=== PATIENT | female | born 1995 | race Caucasian/White ===

== ENCOUNTER 2021-05-27 21:14 | Emergency (ER) | payer BC ==
[~2021-05-27] VITALS: Ht 160 cm; Wt 68.2 kg
[~2021-05-27 21:14] MED LIST: KEPPRA 500MG500 MG PO
[2021-05-27 21:59] LABS: BASO # 0.1 K/mm3 (0.0-0.2); BASO % 0.6 % (0.0-2.0); EOS % 0.4 % (0-4.0); GRAN # 6.1 K/mm3 (1.4-6.5); GRAN % 60.2 % (42.2-75.2); HEMOGLOBIN 11.6 g/dl (12.5-16.0); LYMPH % 29.2 % (20.0-51.0); MEAN CELL VOLUME 86 fl (80.0-100.0); MEAN CORPUSCULAR HEMOGLOBIN 30 pg (27.0-31.0); MEAN CORPUSCULAR HGB CONC 35 g/dl (33.0-37.0); MEAN PLATELET VOLUME 8.5 fl (7.4-10.4); MONO # 0.9 K/mm3 (0.1-0.6); MONO % 9.3 % (1.7-9.3); PLATELET COUNT 313 K/mm3 (130-400); RED BLOOD COUNT 3.84 M/mm3 (4.10-5.30); REDCELL DISTRIBUTION WIDTH-CV 11.9 % (11.5-14.5)
[2021-05-27 22:00] LABS: HEMATOCRIT 33.1 % (37.0-47.0)
[2021-05-27 22:25] LABS: ALBUMIN 3.9 gm/dL (3.5-5.0); BILIRUBIN,TOTAL 0.3 mg/dL (0.2-1.2); CALCIUM 9.5 mg/dL (8.4-10.2); CREATININE, serum 0.73 mg/dL (0.57-1.11); POTASSIUM 3.7 mmol/L (3.5-4.5); TOTAL PROTEIN 6.4 gm/dL (6.2-8.1)
[2021-05-27 23:12] VITALS: BP 114/70; PULSE 76
== END 2021-05-27 23:12 | disposition home or self-care (01) ==
LOC: COL.ER 21:14
PROVIDERS: Physician Assistant
DX: O20.0 Threatened abortion (principal); Z3A.09 9 weeks gestation of pregnancy
CPT/HCPCS: J7030

== ENCOUNTER 2021-06-30 18:42 | Emergency (ER) | payer BC ==
[~2021-06-30] VITALS: Ht 160 cm; Wt 66.4 kg
[2021-06-30 18:50] VITALS: TEMP 98
[2021-06-30 21:15] VITALS: BP 124/78; PULSE 76
== END 2021-06-30 21:15 | disposition home or self-care (01) ==
LOC: COL.ER 18:42
DX: O23.591 Infection of other part of genital tract in pregnancy, first trimester (principal); N89.8 Other specified noninflammatory disorders of vagina; Z3A.14 14 weeks gestation of pregnancy

== ENCOUNTER 2021-12-05 17:18 | Outpatient (CLI) | payer BC ==
[~2021-12-05] VITALS: Ht 160 cm; Wt 76.8 kg
--- NOTE | 2021-12-05 17:45 | NUR ---
notified patient here, amnitrace negative, Category I strip. Discharge order obtained. Patient to return for induction of labor on as scheduled.
[2021-12-05 18:00] VITALS: BP 107/61; PULSE 92; TEMP 97.9
== END 2021-12-05 18:00 | disposition home or self-care (01) ==
LOC: LDRO 17:18 → LDR 17:18 → LDRO 18:00
DX: Z34.93 Encounter for supervision of normal pregnancy, unspecified, third trimester (principal); Z3A.36 36 weeks gestation of pregnancy
CPT/HCPCS: OP

== ENCOUNTER 2021-12-05 18:01 | Inpatient (IN) | payer BC ==
[~2021-12-05] VITALS: Ht 160 cm; Wt 82.3 kg
[2021-12-07] VITALS (27 sets, daily range): BP systolic 85–112; BP diastolic 50–71; PULSE 72–99; TEMP 97.4–98.2
--- NOTE | 2021-12-07 06:35 | NUR ---
Presents to L&D for scheduled induction of labor. Note ambulatory, accompanied by spouse.
--- NOTE | 2021-12-07 07:08 | NUR ---
After noting reactive Category I monitor strip, pitocin started @ 2mU/min with explanation to patient and spouse. Verbalize understanding.
[2021-12-07] MEDS ORDERED: PRENATAL MULTIV1 KIT PO (07:11)
[2021-12-07 07:34] LABS: HEMOGLOBIN 10.6 g/dl (12.5-16.0); MEAN CELL VOLUME 88 fl (80.0-100.0); MEAN CORPUSCULAR HEMOGLOBIN 30 pg (27-31); MEAN CORPUSCULAR HGB CONC 34 g/dl (33.0-37.0); MEAN PLATELET VOLUME 8.9 fl (7.4-10.4); PLATELET COUNT 320 K/mm3 (130-400); RED BLOOD COUNT 3.51 M/mm3 (4.10-5.30)
[2021-12-07 07:36] LABS: HEMATOCRIT 30.9 % (37.0-47.0)
[2021-12-07 07:47] LABS: LYMPHOCYTE 16 % (20.0-51.0); NEUTROPHILS 75 % (42.0-75.2)
[2021-12-07 07:48] LABS: PLATELET ESTIMATE NORMAL (NORMAL)
--- NOTE | 2021-12-07 08:03 | NUR ---
Note patient's transfer operator, "Cristina" arrives to unit.
--- NOTE | 2021-12-07 08:15 | NUR ---
Pitocin increased to 8mU/min. Patient reports incontinent of urine, dribbling. Mesh underwear and keshav pad provided. Up to BR @ this time.
--- NOTE | 2021-12-07 08:42 | NUR ---
0842-Roles here for evaluation. 0848-AROM by . Clear fluid noted.
--- NOTE | 2021-12-07 09:22 | NUR ---
Assisted up to BR.
--- NOTE | 2021-12-07 09:25 | NUR ---
Assisted to sitting upright on birthing ball upon return from bathroom. Pit increased to 14 mU/min.
--- NOTE | 2021-12-07 09:47 | NUR ---
Assisted back to bed. Positioned in left lateral using peanut ball.
--- NOTE | 2021-12-07 10:00 | NUR ---
Note patient hypotensive, asymptomatic. Lying on left side, cuff on arm that is up (right arm).
--- NOTE | 2021-12-07 10:28 | NUR ---
Rate of pitocin increased to 16 mU/min. [place] repositioned, as noted, difficulty tracing contractions while patient in left lateral.
--- NOTE | 2021-12-07 10:50 | NUR ---
Repositioned to wedged left per patient request following repeat SVE.
--- NOTE | 2021-12-07 11:19 | NUR ---
Requests epidural. LR bolus begun. Anesthesia notified.
--- NOTE | 2021-12-07 11:42 | NUR ---
Up to bathroom prior to epidural block.
--- NOTE | 2021-12-07 11:45 | NUR ---
1143-KRISTINE Nash, here. Time-out completed. 1145-Sitting up at side of bed in preparation for epidural placement. 1150-Local anesthetic administered by KRISTINE Nash. 1153-Epidural space obtained by KRISTINE. 1153-Single shot administered by KRISTINE. 1153-Epidural catheter threaded by KRISTINE. 1156-Test dose administered by KRISTINE. No adverse reactions noted. Tolerates procedure well.
--- NOTE | 2021-12-07 12:01 | NUR ---
1201-Roles in house, stops into patient room. Updated to last SVE at 1048, , just finished with epidural block. She reports she is in-house for surgery, will stop back by after.
--- NOTE | 2021-12-07 12:41 | NUR ---
perfors red saarh straight catheter for approximated 150mL urine return. repairs 2nd degree with 2-[address]1.
--- NOTE | 2021-12-07 18:44 | NUR ---
REPORT RECEIVED FROM KAREN RN. PATIENT AND SPOUSE IN NURSERY SPEAKING WITH TRANSPORT TEAM FROM [facility].
[2021-12-07] MEDS ORDERED: MOTRIN 800800 MG/TAB PO (18:54)
--- NOTE | 2021-12-07 20:10 | NUR ---
Discharge instructions reviewed with patient, verbalized understanding. Pt seen ambulating off unit with belongings and significant other.
== END 2021-12-07 20:10 | disposition home or self-care (01) | DRG 806 ==
LOC: LDR 12-07 06:31 → OB 12-07 15:00 → LDR 12-07 18:00 → OB 12-07 20:10
PROVIDERS: ADMIT Obstetrics & Gynecology
PROC: 10E0XZZ Delivery of Products of Conception, External Approach (ICD-10-PCS; principal; 2021-12-07)
PROC: 0KQM0ZZ Repair Perineum Muscle, Open Approach (ICD-10-PCS; 2021-12-07)
PROC: 10907ZC Drainage of Amniotic Fluid, Therapeutic from Products of Conception, Via Natural or Artificial Opening (ICD-10-PCS; 2021-12-07)
PROC: 3E033VJ Introduction of Other Hormone into Peripheral Vein, Percutaneous Approach (ICD-10-PCS; 2021-12-07)
DX: O36.5930 Maternal care for other known or suspected poor fetal growth, third trimester, not applicable or unspecified (principal); O99.354 Diseases of the nervous system complicating childbirth; Z37.0 Single live birth; O34.03 Maternal care for unspecified congenital malformation of uterus, third trimester; Q51.28 Other and unspecified doubling of uterus; G40.909 Epilepsy, unspecified, not intractable, without status epilepticus; O43.123 Velamentous insertion of umbilical cord, third trimester; O70.1 Second degree perineal laceration during delivery; Z3A.37 37 weeks gestation of pregnancy
CPT/HCPCS: J2590; J7120

== ENCOUNTER 2022-05-03 08:14 | Emergency (ER) | payer OTHER ==
[~2022-05-03] VITALS: Ht 160 cm; Wt 68.2 kg
[~2022-05-03 08:14] MED LIST changes: +MOTRIN 800800 MG/TAB PO; +PRENATAL MULTIV1 KIT PO
[2022-05-03 09:04] LABS: COLLECTION METHOD CLEAN CATCH
[2022-05-03 09:26] LABS: PH 6.5 (5.0-8.5); URINE APPEARANCE Clear (CLEAR/HAZY); URINE BLOOD Negative (NEGATIVE); URINE COLOR Yellow (YELLOW); URINE GLUCOSE Negative (NEGATIVE); URINE KETONE Negative (NEGATIVE); URINE NITRATE Negative (NEGATIVE); URINE PROTEIN(semi-quant) Negative (NEGATIVE); URINE UROBILINOGEN 0.2 E.U/dL (0.2-1.0)
[2022-05-03 09:28] LABS: SQUAMOUS EPITHELIAL 0-2 /hpf (0-10); URINE RBC None Seen /hpf (0-2)
[2022-05-03 09:29] LABS: URINE BACTERIA None Seen /hpf (NONE SEEN)
[2022-05-03 11:06] VITALS: BP 101/72; PULSE 80
== END 2022-05-03 11:06 | disposition home or self-care (01) ==
LOC: COL.ER 08:14
PROVIDERS: Emergency Medicine
DX: R07.89 Other chest pain (principal); Z28.310 Unvaccinated for COVID-19

== ENCOUNTER 2022-05-10 21:32 | Emergency (ER) | payer OTHER ==
[~2022-05-10] VITALS: Ht 160 cm; Wt 68.2 kg
[2022-05-10 21:40] VITALS: TEMP 98
[2022-05-10 22:47] LABS: BASO % 0.4 % (0.0-2.0); EOS % 0.5 % (0.0-4.0); GRAN # 3.9 K/mm3 (1.4-6.5); GRAN % 47.5 % (42.2-75.2); HEMATOCRIT 37.6 % (37.0-47.0); HEMOGLOBIN 12.8 g/dl (12.5-16.0); LYMPH # 3.2 K/mm3 (1.2-3.4); LYMPH % 39.2 % (20.0-51.0); MEAN CELL VOLUME 88 fl (80.0-100.0); MEAN CORPUSCULAR HEMOGLOBIN 30 pg (27-31); MEAN CORPUSCULAR HGB CONC 34 g/dl (33.0-37.0); MEAN PLATELET VOLUME 9.1 fl (7.4-10.4); MONO % 12.2 % (1.7-9.3); PLATELET COUNT 319 K/mm3 (130-400); RED BLOOD COUNT 4.26 M/mm3 (4.10-5.30)
[2022-05-10 23:01] LABS: ALANINE AMINOTRANSFERASE 14 U/L (0-55); ALBUMIN 4.8 gm/dL (3.5-5.0); ALKALINE PHOSPHATASE 63 U/L (40-150); ANION GAP 11 mmol/L (7-16); AST,SGOT 18 U/L (5-34); BILIRUBIN,TOTAL 0.5 mg/dL (0.2-1.2); BLOOD UREA NITROGEN 18 mg/dL (7-19); CALCIUM 9.7 mg/dL (8.4-10.2); CARBON DIOXIDE 21 mmol/L (22-29); CHLORIDE 106 mmol/L (98-107); CREATININE, serum 0.89 mg/dL (0.57-1.11); GLUCOSE 75 mg/dL (70-99); POTASSIUM 3.9 mmol/L (3.5-4.5); SODIUM 138 mmol/L (136-145); TOTAL PROTEIN 7.7 gm/dL (6.2-8.1)
[2022-05-10 23:12] LABS: TROPONIN-I < 0.010 ng/mL (0.00-0.033)
[2022-05-11 00:17] VITALS: BP 130/72; PULSE 88
== END 2022-05-10 23:57 | disposition home or self-care (01) ==
LOC: COL.ER 21:32
PROVIDERS: Emergency Medicine
DX: R07.89 Other chest pain (principal); M79.602 Pain in left arm; Z28.310 Unvaccinated for COVID-19
CPT/HCPCS: J1885

== ENCOUNTER 2022-10-14 07:33 | Outpatient (CLI) | payer OTHER ==
[~2022-10-14] VITALS: Ht 160 cm; Wt 63.6 kg
[2022-10-14 06:05] LABS: BASO # 0.1 K/mm3 (0.0-0.2); BASO % 0.4 % (0.0-2.0); EOS % 0.1 % (0.0-4.0); GRAN # 15.7 K/mm3 (1.4-6.5); HEMATOCRIT 36.7 % (37.0-47.0); HEMOGLOBIN 12.1 g/dl (12.5-16.0); LYMPH # 1.3 K/mm3 (1.2-3.4); LYMPH % 6.8 % (20.0-51.0); MEAN CELL VOLUME 92 fl (80.0-100.0); MEAN CORPUSCULAR HEMOGLOBIN 30 pg (27-31); MEAN CORPUSCULAR HGB CONC 33 g/dl (33.0-37.0); MEAN PLATELET VOLUME 8.9 fl (7.4-10.4); MONO # 1.3 K/mm3 (0.1-0.6); MONO % 7.3 % (1.7-9.3); PLATELET COUNT 278 K/mm3 (130-400); RED BLOOD COUNT 4.01 M/mm3 (4.10-5.30); REDCELL DISTRIBUTION WIDTH-CV 12.5 % (11.5-14.5)
--- NOTE | 2022-10-14 08:09 | NUR ---
PT ARRIVES ON UNIT FROM ED WITH SPOUSE AND CHILD. PT CALM, COMPLAINING OF CRAMPING AND ASKING FOR MEDICATION TO HELP. RN DISCUSSES POC WITH PT AND ANSWERS ANY QUESTIONS. PT VERBALIZES UNDERSTANDING.
[2022-10-14 08:33] VITALS: BP 107/62; PULSE 72; TEMP 98.1
--- NOTE | 2022-10-14 11:24 | NUR ---
0108 RN BEDSIDE; PT RESTING COMFORTABLY, WARM BLANKETS PROVIDED. PT EXPRESSES A DESIRE TO GO HOME. RN ASSESSES PAD AND PAIN.
--- NOTE | 2022-10-14 12:05 | NUR ---
1204 PT GIVEN BOTH WRITTEN AND VERBAL DISCHARGE INSTRUCTIONS. PT INSTRUCTED ON SIGNS/SYMPTOMS OF SEPSIS, SIGNS TO WATCH OUT FOR, WHAT TO CONTACT PROVIDER FOR. PT VERBALIZES UNDERSTANDING AND HAS NO QUESTIONS AT THIS TIME.
== END 2022-10-14 12:11 | disposition home or self-care (01) ==
LOC: COL.ER 07:33 → EDSTATUS 07:54 → COL.ER 12:11
PROVIDERS: Personal Emergency Response Attendant
DX: O03.9 Complete or unspecified spontaneous abortion without complication (principal); Z28.310 Unvaccinated for COVID-19
CPT/HCPCS: J1885; J7030

== ENCOUNTER 2023-07-19 10:45 | Outpatient (CLI) | payer OTHER ==
[~2023-07-19] VITALS: Ht 160 cm; Wt 74.5 kg
--- NOTE | 2023-07-19 10:50 | NUR ---
PT AMBULATORY TO UNIT WITH SPOUSE AND CHILD. PT ORIENTED TO ROOM AND PLAN OF CARE, EFM AND TOCO PLACED ON MATERNAL STOMACH FOR TRACING. PT CAME FROM OB CLINIC DUE TO REPORTED VAGINAL BLEEDING. PT REPORTS HAVING A LARGE SNEEZE AND FEELING SOME DISCOMFORT AND SCANT LOF. AFTER SNEEZE IS WHEN PT REPORTS STARTING SCANT VAGINAL SPOTTING. FHR BASELINE 140'S, NO CTX BUT PT REPORTS "FEELING IRREGULAR MCKINLEY LE OCCATIONALLY." NO LOF OR VAGINAL SPOTTING OBSERVED PER THIS RN, BUT PT DID SHOW THIS RN HER PAD WITH SCANT TO NONE OF VAGINAL SPOTTING ON ADMISSION TO UNIT. PT VS STABLE
[2023-07-19] MEDS ORDERED: PRENATAL TABLET PO (11:09)
[2023-07-19 11:20] VITALS: BP 94/55; PULSE 89; TEMP 98.2
--- NOTE | 2023-07-19 11:40 | NUR ---
THIS RN CHECKS LOF WITH AMNIOTRACE. AMNIOTRACE WAS NEGATIVE.
[2023-07-19 11:50] VITALS: BP 91/58; PULSE 100
== END 2023-07-19 13:00 | disposition home or self-care (01) ==
LOC: LDRO 10:45
DX: O26.859 Spotting complicating pregnancy, unspecified trimester (principal); Z3A.00 Weeks of gestation of pregnancy not specified

== ENCOUNTER 2023-07-23 00:20 | Outpatient (CLI) | payer OTHER ==
[~2023-07-23] VITALS: Ht 160 cm; Wt 76.4 kg
[~2023-07-23 00:20] MED LIST changes: +PRENATAL TABLET PO
[2023-07-23] MEDS ORDERED: LR 1,000 ML IV PRN (00:30)
--- NOTE | 2023-07-23 00:30 | NUR ---
AT 34+2 PRESENTS TO OBT VIA WHEELCHAIR ACCOMPANIED BY SPOUSE AND STAFF. PT COMPLAINT OF HAVING A GRAND MAL SEIZURE AT 2345 ON 15JAN LASTING FOR APPROX 30 SECONDS. PT DENIES TRIGGER OF SEIZURE. PT STATES SHE WAS LAYING IN BED WHEN THE SEIZURE OCCURED. PT DENIES FALLS OR TRAUMA DURING SEIZURE EVENT. PT STATES SHE TAKES 1000MG OF KEPPRA ONCE PER DAY. PER RECORD THE PRESCRIBED DOSE OF KEPPRA IS 1000MG TWICE PER DAY. LAST DOSE WAS AROUND 2300 JUST PRIOR TO SEIZURE. PT ENDORSES MOVEMENT. STATES THAT SHE DRANK LEMONADE AFTER THE SEIZURE TO ELICIT MOVEMENT AT THAT TIME. PT DENIES LOF/VAG BLEEDING. PT CHANGED INTO GOWN AND PLACED ON MONITOR. REACTIVE NST OBTAINED.
[2023-07-23 01:15] VITALS: BP 96/61; PULSE 98; TEMP 98.7
--- NOTE | 2023-07-23 01:35 | NUR ---
WRITTEN AND VERBAL DISCHARGE INSTRUCTIONS PROVIDED TO PT AND SPOUSE. EDUCATED ON RECOMMENDATION FROM DR. WALL TO TAKE 1000MG KEPPRA TWICE DAILY PRESCRIBED. PT STATES SHE HAS BEEN TAKING IT ONCE DAILY FOR A LONG TIME AND THAT IS WHAT WORKS FOR HER. SHE STATES SHE FEELS LESS 'FOGGY' WHEN ONLY TAKING IT ONCE PER DAY. PT STATES SHE DOES NOT HAVE A SET TIME TO TAKE THE KEPPRA SO ADMINISTRATION TIMES VARY. PER DR. WALL PT SHOULD CALL NEURO CLINIC IN THE MORNING TO INFORM THEM ABOUT THE SEIZURE EPISODE. PT VERBALIZED UNDERSTANDING OF DISCHARGE EDUCATION. PT DENIES QUESTIONS/CONCERNS AT TIME OF DC. PT STABLE AT TIME OF DC. PT AMBULATED OFF UNIT TO POV ACCOMPANIED BY SPOUSE.
== END 2023-07-23 01:35 | disposition home or self-care (01) ==
LOC: LDRO 00:20
DX: O99.353 Diseases of the nervous system complicating pregnancy, third trimester (principal); Z3A.34 34 weeks gestation of pregnancy

== ENCOUNTER 2023-08-10 20:43 | Outpatient (CLI) | payer OTHER ==
[~2023-08-10] VITALS: Ht 160 cm; Wt 77.3 kg
--- NOTE | 2023-08-10 20:50 | NUR ---
2049- PT PRESENTS TO LDR COMPLAINING OF CONTRACTIONS, AMBULATORY TO ROOM LR5, CHANGED INTO GOWN. 2057- EFM X2 APPLIED. PT DENIES LEAKING FLUID OR VAGINAL BLEEDING. STATES SHE HAS HAD MORE THAN 6 CONTRACTIONS IN AN HOUR SINCE [address] BHATT HAD TOLD HER THAT WAS WHEN SHE NEEDED TO BE EVALUATED AT THE HOSPITAL. PT REPORTS SHE IS FEELING THE BABY MOVE. 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 DISCUSSED PLAN OF CARE FOR LABOR CHECK, QUESTIONS ANSWERED, AND PT GIVES CONSENT FOR SVE. 2104- SVE BY THIS NURSE WITH UNKNOWN PRESENTING PART, POSSIBLE BUTTOCKS OR SHOULDER. PLAN OF CARE FOR LABOR CHECK DISCUSSED AND PT IS AGREEABLE TO BE MONITORED FOR AN HOUR AND THEN RECHECK CERVIX. 2114- NURSING ADMISSION HISTORY AND ASSESSMENT COMPLETE. PT IS PROVIDED WITH ORAL HYDRATION. 2129- PT TURNS TO LEFT LATERAL FOR HER COMFORT. NURSE AT BEDSIDE TO ADJUST MONITORS. 2134- UNABLE TO OBTAIN TRACING DUE TO MATERNAL POSITION AND BICORNATE UTERUS WITH UNKNOWN LIE. MONITOR TURNED OFF SO MOTHER MAY REST AND WILL OBTAIN TRACING PRIOR TO DISCHARGE. 2139- DR WALL UPDATED CHARTED. ORDERS OBTAINED FOR LABOR CHECK 2208- MONITOR TURNED ON. PT REPORTS HER CONTRACTIONS ARE ABOUT THE SAME AND SHE "JUST WANTS TO GET HOME." 2209- SVE BY THIS NURSE WITH NO CHANGE. PLAN OF CARE FOR WATCHING BABY A LITTLE ON MONITOR AND THEN DISMISSAL DISCUSSED. PT AGREEABLE. DR WALL AT DESK FOR ANOTHER DELIVERY AND IS UPDATED ON PT COMFORT AND SVE. DISMISSAL ORDERS RECEIVED. 2224- PT OFF MONITORS FOR DISMISSAL. DISCHARGE INSTRUCTIONS GIVEN INCLUDING WHEN TO RETURN TO LDR AND DISCHARGE AND SPOTTING EXPECTATIONS. PT VERBALIZES UNDERSTANDING AND SIGNS PAPERWORK. 2234- PT DISMISSED TO HOME AMBULATORY ACCOMPANIED BY SPOUSE AND DAUGHTER.
[2023-08-10] MEDS ORDERED: LR 1,000 ML IV PRN (21:00)
[2023-08-10 21:30] VITALS: BP 101/67; PULSE 114; TEMP 98.5
== END 2023-08-10 22:35 | disposition home or self-care (01) ==
LOC: LDRO 20:43 → LDR 20:55 → LDRO 22:35
DX: O47.03 False labor before 37 completed weeks of gestation, third trimester (principal); Z3A.36 36 weeks gestation of pregnancy
CPT/HCPCS: OP

== ENCOUNTER 2023-08-26 09:20 | Inpatient (IN) | payer OTHER ==
[~2023-08-26] VITALS: Ht 160 cm; Wt 77.7 kg
[2023-08-26 10:00] VITALS: BP 96/62; PULSE 88; TEMP 98
[2023-08-26] MEDS ORDERED: LR 1,000 ML IV SCH (10:00)
[2023-08-26 10:01] LABS: BASO # 0.1 K/mm3 (0.0-0.2); BASO % 0.4 % (0.0-2.0); EOS % 0.2 % (0.0-4.0); GRAN # 8.9 K/mm3 (1.4-6.5); GRAN % 70.8 % (42.2-75.2); HEMOGLOBIN 11.2 g/dl (12.5-16.0); LYMPH # 2.2 K/mm3 (1.2-3.4); LYMPH % 17.4 % (20.0-51.0); MEAN CELL VOLUME 90 fl (80.0-100.0); MEAN CORPUSCULAR HEMOGLOBIN 30 pg (27-31); MEAN CORPUSCULAR HGB CONC 34 g/dl (33.0-37.0); MEAN PLATELET VOLUME 8.8 fl (7.4-10.4); MONO # 1.3 K/mm3 (0.1-0.6); MONO % 10.2 % (1.7-9.3); PLATELET COUNT 354 K/mm3 (130-400); REDCELL DISTRIBUTION WIDTH-CV 13.4 % (11.5-14.5)
[2023-08-26 10:02] LABS: HEMATOCRIT 33.1 % (37.0-47.0)
--- NOTE | 2023-08-26 10:30 | NUR ---
Pt and family arrive ambulatory to unit at 0915 for scheduled . Pt changes into gown, EFM explained and placed, VS done. Pt denies leaking of fluid, vaginal bleeding, and contractions. Pt reports good movement. IV started in left forearm, labs drawn, LR started per protocol. Pt has history of unstable lie, wishes to have vaginal delivery if possible. Dr. Akins to bedside at 0930, scans pt with US, per physician fetus in transverse position with head in upper right corner. Pt counseled extensively by Dr. Akins to proceed with scheduled at this time. Pt and epxress concerns and are reluctant, request time to try positioning to see if baby will transition to vertex position.
--- NOTE | 2023-08-26 11:10 | NUR ---
Pt repositioning self continuously starting at 1000, difficulty tracing FHR during maternal movement. Pt taken off monitors at 1018. Monitors turned back on at 1105.
--- NOTE | 2023-08-26 11:32 | NUR ---
Dr. Akins returns to bedside at 1040. Repeat scan of pt by physician shows unchanged presentation. Pt and spouse again counseled by Dr. Akins to proceed with . Pt and spouse request time to discuss decision. Dr. Akins returns to bedside at 1055. Pt and spouse have decided to not proceed with at this time. Per Dr. Akins, pt rescheduled for on Thursday 08/31 at 0730. Discharge education provided to pt and spouse, educated to return to hospital if leaking fluid, vaginal bleeding, regular contractions every 3 minutes, or decreased movement. Pt also informed of rescheduled and need to stop fluid/food intake at midnight the day of. Pt and spouse verbalize understanding. Pt and spouse leave ambulatory at 1135
== END 2023-08-26 11:35 | disposition home or self-care (01) | DRG 833 ==
LOC: LDR 09:20 → OB 11:07 → LDR 11:35
PROVIDERS: ADMIT Obstetrics & Gynecology
DX: O32.8XX0 Maternal care for other malpresentation of fetus, not applicable or unspecified (principal); Z3A.39 39 weeks gestation of pregnancy; O99.353 Diseases of the nervous system complicating pregnancy, third trimester; O34.03 Maternal care for unspecified congenital malformation of uterus, third trimester; Q51.3 Bicornate uterus; G40.909 Epilepsy, unspecified, not intractable, without status epilepticus
CPT/HCPCS: J7120

== ENCOUNTER 2023-08-31 05:37 | Inpatient (IN) | payer OTHER ==
[~2023-08-31] VITALS: Ht 160 cm; Wt 77.5 kg
[2023-08-31] VITALS (17 sets, daily range): BP systolic 98–116; BP diastolic 56–82; PULSE 60–92; TEMP 98.1–98.6
[2023-08-31] MEDS ORDERED: LR 1,000 ML IV SCH ×2 (05:45→06:45)
[2023-08-31 06:40] LABS: BASO % 0.4 % (0.0-2.0); EOS # 0.1 K/mm3 (0.0-0.7); EOS % 0.6 % (0.0-4.0); GRAN # 5.8 K/mm3 (1.4-6.5); GRAN % 62.2 % (42.2-75.2); HEMOGLOBIN 11.2 g/dl (12.5-16.0); LYMPH # 2.4 K/mm3 (1.2-3.4); LYMPH % 26.3 % (20.0-51.0); MEAN CELL VOLUME 90 fl (80.0-100.0); MEAN CORPUSCULAR HEMOGLOBIN 30 pg (27-31); MEAN CORPUSCULAR HGB CONC 34 g/dl (33.0-37.0); MEAN PLATELET VOLUME 9.1 fl (7.4-10.4); MONO # 0.8 K/mm3 (0.1-0.6); MONO % 9.1 % (1.7-9.3); PLATELET COUNT 320 K/mm3 (130-400); REDCELL DISTRIBUTION WIDTH-CV 13.6 % (11.5-14.5)
[2023-08-31] MEDS ORDERED: Ondansetron 4 MG/2 ML VIAL IV PRN ×2 (06:45→08:30)
[2023-08-31] MEDS ORDERED: Meperidine 50 MG/ML 1 ML VIAL IV PRN (06:45)
[2023-08-31] MEDS ORDERED: diphenhydrAMINE 50 MG/ML 1 ML VIAL IV PRN (06:45)
[2023-08-31] MEDS ORDERED: NS 30 ML IV ONE (06:54)
[2023-08-31] MEDS ORDERED: Ketorolac 30 MG/ML VIAL ONE (06:54)
[2023-08-31] MEDS ORDERED: Ondansetron 4 MG/2 ML VIAL ONE (06:54)
[2023-08-31] MEDS ORDERED: dexAMETHasone 10 MG/ML VIAL ONE (06:54)
[2023-08-31] MEDS ORDERED: Oxytocin 10 UNITS/ML VIAL ONE (06:54)
[2023-08-31] MEDS ORDERED: EPINEPHrine 1 MG/1 ML Ampule ONE (06:55)
[2023-08-31] MEDS ORDERED: Phenylephrine 10 MG/ML VIAL ONE (06:55)
[2023-08-31 06:58] LABS: HEMATOCRIT 33.1 % (37.0-47.0)
[2023-08-31] MEDS ORDERED: Naloxone 0.4 MG/ML VIAL IV PRN (08:30)
[2023-08-31] MEDS ORDERED: Loratadine 10 MG TAB PO PRN (08:30)
[2023-08-31] MEDS ORDERED: Measles/Mumps/Rubella Virus Vaccine Live w Diluent 0.5 ML VIAL SQ SCH (08:30)
[2023-08-31] MEDS ORDERED: Acetaminophen 500 MG TAB PO SCH (08:30)
[2023-08-31] MEDS ORDERED: Magnes Hydrox (MOM) 80 MG/ML 30 ML CUP PO PRN (08:30)
[2023-08-31] MEDS ORDERED: oxyCODONE 5 MG TAB PO PRN (08:30)
[2023-08-31] MEDS ORDERED: LR 1,000 ML IV PRN (08:30)
[2023-08-31] MEDS ORDERED: Prenatal Vitamins/Iron/FA TAB PO SCH (09:00)
[2023-08-31] MEDS ORDERED: levETIRAcetam 500 MG TAB PO SCH (09:00)
--- NOTE | 2023-08-31 10:22 | NUR ---
VIABLE FEMALE INFANT BORN VIA PRIMARY FOR BREECH PRESENTATION AT 0756.
--- NOTE | 2023-08-31 10:23 | NUR ---
PT AND SPOUSE ORIENTED TO ROOM AND POC. PATIENT VERBALIZES UNDERSTANDING
[2023-08-31] MEDS ORDERED: Ibuprofen 800 MG TAB PO SCH (14:26)
--- NOTE | 2023-08-31 14:57 | NUR ---
2804 PT STATES SHE CAN FEEL HER LEGS BUT HER FEET "FEEL ASLEEP". RN DISCUSSES PLAN TO TRY TO DANGLE/WIRE MESH KNITTER 1 HOUR. PT AGREES
--- NOTE | 2023-08-31 16:14 | NUR ---
1610 PT AMBULATES TO BATHROOM WITH RN STAND BY ASSIST. PT INDEPENDENT IN AMBULATION
[2023-08-31] MEDS ORDERED: Sennosides/Docusate 8.6-50 MG TAB PO SCH (17:00)
[2023-08-31] MEDS ORDERED: traZODone 50 MG TAB PO PRN (21:00)
[2023-09-01 00:25] VITALS: BP 103/53; PULSE 61; TEMP 98.3
[2023-09-01 07:18] VITALS: BP 93/52; PULSE 62; TEMP 98
[2023-09-01] MEDS ORDERED: Influenza Virus Vaccine, Quad '23-24 (6 MOS+) 0.5 ML SYRINGE IM SCH (09:00)
[2023-09-01 16:07] VITALS: BP 112/62; PULSE 60; TEMP 98.1
[2023-09-01 21:35] VITALS: BP 95/50; PULSE 65; TEMP 98.4
--- NOTE | 2023-09-02 06:30 | NUR ---
THIS RN ATTEMPTED TO ASSESS INCISION, ABDOMINAL DRESSING STILL ON PT, RECOMMENDED THAT WHEN PT SHOWERS THE DRESSING CAN BE REMOVED EASIER. FUNDUS FIRM DOWN 1 FROM UMBILICUS, SCANT LOCHIA, NO CLOTS, PT REPORTS PAIN AT INCISION SITE WHEN MOVING CERTAIN WAYS BUT REPORTS STAYING ON SCHEDULED TYLENOL AND MOTRIN HAVE HELPED.
[2023-09-02 06:50] VITALS: BP 90/56; PULSE 64; TEMP 97.4
[2023-09-02] MEDS ORDERED: IBU800 M1 PO (09:14)
== END 2023-09-02 13:55 | disposition home or self-care (01) | DRG 787 ==
LOC: OB 05:37
PROVIDERS: ADMIT Obstetrics & Gynecology
PROC: 10D00Z1 Extraction of Products of Conception, Low, Open Approach (ICD-10-PCS; principal; 2023-08-31)
DX: O32.1XX0 Maternal care for breech presentation, not applicable or unspecified (principal); O99.354 Diseases of the nervous system complicating childbirth; Z37.0 Single live birth; O90.2 Hematoma of obstetric wound; G40.909 Epilepsy, unspecified, not intractable, without status epilepticus; O34.03 Maternal care for unspecified congenital malformation of uterus, third trimester; Q51.3 Bicornate uterus; O69.81X0 Labor and delivery complicated by cord around neck, without compression, not applicable or unspecified; Z3A.39 39 weeks gestation of pregnancy
CPT/HCPCS: J0171; J0665; J0690; J1100; J1885; J2371; J2405; J2590; J7120